=== PATIENT | male | born 1945 | race Caucasian/White ===

== ENCOUNTER 2023-09-16 18:06 | Observation (INO) | payer OTHER ==
[2023-09-16] MEDS ORDERED: METHOCARBAMOL 500 MG TABLET ONE (20:17)
[2023-09-16] MEDS ORDERED: LIDOCAINE 4% PATCH TP ONE (20:18)
[2023-09-16] MEDS ORDERED: ACETAMINOPHEN INJECTION 100 ML IVPB ONE (20:18)
[2023-09-16] MEDS: LIDOCAINE 4% PATCH TP ONE (20:31)
[2023-09-16] MEDS: METHOCARBAMOL 500 MG TABLET PO ONE (20:32)
[2023-09-16] MEDS: ACETAMINOPHEN 1000 MG/100 ML BAG IVPB ONE (20:32)
[2023-09-16 20:54] LABS: MCHC 33.7 g/dl (32.0-35.9); MEAN CELL VOLUME 94.8 fl (80-96); WHITE BLOOD COUNT 8.6 K/mm3 (4.0-10.0)
[2023-09-16 21:05] LABS: BASO % 0.7 % (0-2.0); EOS % 3.1 % (0-4.5); HEMATOCRIT 45.2 % (35.4-49); HEMOGLOBIN 15.2 GM/dL (11.7-16.9); LYMPH % 21.1 % (8-40); MEAN PLT VOLUME 10.9 fl (7.5-11.1); MONO % 8.1 % (3.8-10.2); PLATELET COUNT 163 10^3/uL (134-434); RBC 4.77 M/mm3 (4.00-5.60); RDW 13.8 % (11.9-15.9)
[2023-09-16 21:15] LABS: POTASSIUM 4.4 mmol/L (3.5-5.1)
[2023-09-16 21:19] LABS: ALBUMIN 3.4 g/dl (3.4-5.0); BLOOD UREA NITROGEN 23.3 mg/dL (7-18)
[2023-09-16 21:21] LABS: CREATININE 1.5 mg/dL (0.55-1.3)
[2023-09-16 21:22] LABS: BILIRUBIN,TOTAL 0.8 mg/dL (0.2-1)
[2023-09-16 21:23] LABS: TOT PROT 6.6 g/dl (6.4-8.2)
[2023-09-16] MEDS: LIDOCAINE PATCH REMOVAL MC SCH (22:04)
[2023-09-17] MEDS: SODIUM CHLORIDE 0.9% 500 ML INFUS.BAG IV ONE (01:20)
[2023-09-17] MEDS ORDERED: PANTOPRAZOLE 40 MG TABLET PO ONE (03:54)
[2023-09-17] MEDS: D5-1/2NS+10 MEQ KCL - 10 MEQ/1,000 ML INFUS.BAG IV SCH (04:25)
[2023-09-17] MEDS: PANTOPRAZOLE 40 MG TABLET PO SCH (04:25)
[2023-09-17] MEDS ORDERED: HEPARIN NA (PORCINE) 5,000 UNITS/ML 1ML VIAL ONE (06:05)
[2023-09-17] MEDS: HEPARIN NA (PORCINE) 5,000 UNITS/ML 1ML VIAL SQ SCH (06:13)
[2023-09-17] MEDS ORDERED: MECLIZINE HCL 25 MG TABLET (FP) PO PRN (06:30)
[2023-09-17] MEDS ORDERED: PANTOPRAZOLE 40 MG TABLET PO SCH (06:50)
[2023-09-17] MEDS: ACETAMINOPHEN 325 MG TABLET (FP) PO PRN (07:55)
[2023-09-17 08:01] LABS: PH,URINE 6.5 (5.0-8.0); URINE APPEARANCE CLEAR; URINE BILIRUBIN NEGATIVE (NEGATIVE); URINE COLOR YELLOW; URINE GLUCOSE (UA) NEGATIVE (NEGATIVE); URINE KETONE NEGATIVE (NEGATIVE); URINE LEUK ESTERASE NEGATIVE (NEGATIVE); URINE NITRITE NEGATIVE (NEGATIVE); URINE PROTEIN NEGATIVE (NEGATIVE)
[2023-09-17 08:18] VITALS: BMI 29.8
[2023-09-17] MEDS: LIDOCAINE PATCH REMOVAL MC ONE (08:55)
[2023-09-17] MEDS: TAMSULOSIN HCL 0.4 MG CAP PO SCH (09:55)
[2023-09-17] MEDS: CHOLECALCIFEROL (VIT D3) 1,000 UNIT (25 MCG) TABLET PO SCH (09:56)
[2023-09-17] MEDS: POLYETHYLENE GLYCOL (HEALTHYLAX) 3350 17 GM PACKET PO SCH (09:56)
[2023-09-17] MEDS: LOSARTAN POTASSIUM 25 MG TABLET PO SCH (09:56)
[2023-09-17] MEDS: FLUTICASONE/SALMETEROL (WIXELA) 100 MCG/50 MCG DISKUS IH SCH (09:57)
[2023-09-17] MEDS: MECLIZINE HCL 25 MG TABLET (FP) PO SCH (09:57)
[2023-09-17] MEDS: DULoxetine HCL 20 MG CAPSULE.DR PO SCH (09:57)
[2023-09-17] MEDS: amLODIPine BESYLATE 10 MG TABLET (FP) PO ONE (14:52)
[2023-09-17] MEDS: PREGABALIN 100 MG CAPSULE PO SCH (14:54)
[2023-09-17] MEDS ORDERED: ATORVASTATIN CA 40 MG TABLET (FP) PO SCH (22:00)
[2023-09-17] MEDS: ATORVASTATIN CA 40 MG TABLET (FP) PO SCH (22:15)
[2023-09-17] MEDS: DOCUSATE SODIUM 100 MG CAPSULE (FP) PO SCH (22:22)
[2023-09-17] MEDS: MELATONIN 5 MG TABLETS PO PRN (23:13)
[2023-09-18] MEDS: PANTOPRAZOLE 40 MG TABLET PO SCH (06:03)
[2023-09-18 09:20] LABS: BASO % 0.8 % (0-2.0); EOS % 3.7 % (0-4.5); HEMATOCRIT 44.8 % (35.4-49); HEMOGLOBIN 14.6 GM/dL (11.7-16.9); LYMPH % 24.5 % (8-40); MCH 31.3 pg (25.7-33.7); MCHC 32.6 g/dl (32.0-35.9); MEAN CELL VOLUME 96.2 fl (80-96); MONO % 8.3 % (3.8-10.2); NEUT % 62.7 % (42.8-82.8); PLATELET COUNT 146 10^3/uL (134-434); RBC 4.66 M/mm3 (4.00-5.60); RDW 13.7 % (11.9-15.9)
[2023-09-18 09:34] LABS: POTASSIUM 4.1 mmol/L (3.5-5.1)
[2023-09-18 09:38] LABS: BLOOD UREA NITROGEN 18.4 mg/dL (7-18); CALCIUM 9.3 mg/dL (8.5-10.1)
[2023-09-18 09:41] LABS: CREATININE 1.2 mg/dL (0.55-1.3)
[2023-09-18] MEDS: LIDOCAINE 4% PATCH TP SCH (10:03)
[2023-09-18] MEDS: amLODIPine BESYLATE 5 MG TABLET (FP) PO SCH (10:03)
[2023-09-18] MEDS: LOSARTAN POTASSIUM 50 MG TABLET PO SCH (10:04)
[2023-09-18] MEDS: traMADol HCL 50 MG TABLET PO PRN (21:43)
[2023-09-18] MEDS: LIDOCAINE PATCH REMOVAL MC SCH (22:55)
[2023-09-19] MEDS: clonazePAM 0.5 MG TABLET PO ONE (03:01)
[2023-09-19 10:25] LABS: BASO % 0.7 % (0-2.0); EOS % 3.9 % (0-4.5); HEMATOCRIT 46.7 % (35.4-49); HEMOGLOBIN 15.2 GM/dL (11.7-16.9); LYMPH % 18.9 % (8-40); MCH 31.3 pg (25.7-33.7); MCHC 32.5 g/dl (32.0-35.9); MEAN CELL VOLUME 96.5 fl (80-96); MEAN PLT VOLUME 10.9 fl (7.5-11.1); MONO % 7.1 % (3.8-10.2); NEUT % 69.4 % (42.8-82.8); PLATELET COUNT 162 10^3/uL (134-434); RBC 4.84 M/mm3 (4.00-5.60); RDW 13.8 % (11.9-15.9); WHITE BLOOD COUNT 8.2 K/mm3 (4.0-10.0)
[2023-09-19 10:50] LABS: POTASSIUM 4.2 mmol/L (3.5-5.1)
[2023-09-19 10:55] LABS: CALCIUM 8.9 mg/dL (8.5-10.1)
[2023-09-19 10:56] LABS: BLOOD UREA NITROGEN 16.1 mg/dL (7-18)
[2023-09-19 11:00] LABS: CREATININE 1.3 mg/dL (0.55-1.3)
[2023-09-19] MEDS ORDERED: amLODIPine BESYLATE 5 MG TABLET (FP) PO SCH (15:51)
[2023-09-19] MEDS: amLODIPine BESYLATE 5 MG TABLET (FP) PO ONE (17:16)
[2023-09-20] MEDS: amLODIPine BESYLATE 10 MG TABLET (FP) PO SCH (10:55)
[2023-09-20 18:06] VITALS: RESP 18
[2023-09-22] MEDS ORDERED: ALBUTEROL SO4 HFA INHALER IH PRN (09:29)
[2023-09-22] MEDS: ALBUTEROL SO4 HFA INHALER IH ONE (09:57)
[2023-09-23 11:39] VITALS: BP 124/55; PULSE 68; TEMP 98.1
== END 2023-09-23 12:21 ==
LOC: JER 18:06 → JERBED 09-17 00:08 → J5S 09-17 06:37
PROVIDERS: ADMIT Internal Medicine; ATTEND Internal Medicine
PROC: 3E023GC Introduction of Other Therapeutic Substance into Muscle, Percutaneous Approach (ICD-10-PCS; principal; 2023-09-17)
PROC: 3E033NZ Introduction of Analgesics, Hypnotics, Sedatives into Peripheral Vein, Percutaneous Approach (ICD-10-PCS; 2023-09-17)
PROC: 3E0337Z Introduction of Electrolytic and Water Balance Substance into Peripheral Vein, Percutaneous Approach (ICD-10-PCS; 2023-09-17)
DX: N17.9 Acute kidney failure, unspecified (principal); S06.0X0A Concussion without loss of consciousness, initial encounter; W18.39XA Other fall on same level, initial encounter; Y93.89 Activity, other specified; Y92.89 Other specified places as the place of occurrence of the external cause; I10 Essential (primary) hypertension; E78.5 Hyperlipidemia, unspecified; R79.89 Other specified abnormal findings of blood chemistry; R29.6 Repeated falls; G62.9 Polyneuropathy, unspecified; R55 Syncope and collapse; E86.0 Dehydration; K59.00 Constipation, unspecified; M62.81 Muscle weakness (generalized); Z88.8 Allergy status to other drugs, medicaments and biological substances
CPT/HCPCS: 0241U-QW; 36415; 70450-TC; 71045-TC-FY; 72125-TC; 72128-TC; 72131-TC; 72170-TC-FY; 80048; 80053; 81003; 82550; 85025; 85379; 87086; 87635; 93005; 93010; 93306-TC; 96361; 96372; 96374; 97116-GP; 97161-GP; 99285-25; G0378; J0131; J1644

== ENCOUNTER 2024-04-05 10:44 | Emergency (ER) | payer OTHER ==
[2024-04-05 11:05] VITALS: BMI 32.1
[2024-04-05 11:32] LABS: PH,URINE 6.5 (5.0-8.0); URINE APPEARANCE CLEAR; URINE BILIRUBIN NEGATIVE (NEGATIVE); URINE COLOR YELLOW; URINE GLUCOSE (UA) NEGATIVE (NEGATIVE); URINE KETONE NEGATIVE (NEGATIVE); URINE LEUK ESTERASE NEGATIVE (NEGATIVE); URINE NITRITE NEGATIVE (NEGATIVE); URINE PROTEIN TRACE (NEGATIVE)
[2024-04-05 11:56] LABS: BASO % 0.9 % (0-2.0); EOS % 3.1 % (0-4.5); HEMATOCRIT 43.8 % (35.4-49); HEMOGLOBIN 14.4 GM/dL (11.7-16.9); LYMPH % 20.9 % (8-40); MCH 31.4 pg (25.7-33.7); MCHC 32.9 g/dl (32.0-35.9); MEAN CELL VOLUME 95.2 fl (80-96); MEAN PLT VOLUME 9.6 fl (7.5-11.1); MONO % 7.4 % (3.8-10.2); NEUT % 67.7 % (42.8-82.8); PLATELET COUNT 182 10^3/uL (134-434); RDW 13.5 % (11.9-15.9); WHITE BLOOD COUNT 8.6 K/mm3 (4.0-10.0)
[2024-04-05 12:41] LABS: POTASSIUM 4.3 mmol/L (3.5-5.1)
[2024-04-05 12:43] LABS: ALBUMIN 3.7 g/dl (3.4-5.0); CALCIUM 9.1 mg/dL (8.5-10.1)
[2024-04-05 12:47] LABS: CREATININE 1.5 mg/dL (0.55-1.3)
[2024-04-05 12:48] LABS: BILIRUBIN,TOTAL 1.1 mg/dL (0.2-1); TOT PROT 7.2 g/dl (6.4-8.2)
[2024-04-05] MEDS ORDERED: amLODIPine BESYLATE 5 MG TABLET (FP) ONE (15:38)
[2024-04-05] MEDS ORDERED: MECLIZINE HCL 25 MG TABLET (FP) ONE (15:38)
[2024-04-05] MEDS ORDERED: PREGABALIN 100 MG CAPSULE ONE (15:39)
[2024-04-05] MEDS ORDERED: DULoxetine HCL 30 MG CAPSULE.DR PO ONE (15:39)
[2024-04-05] MEDS ORDERED: ATORVASTATIN CA 40 MG TABLET (FP) ONE (15:39)
[2024-04-05] MEDS ORDERED: LOSARTAN POTASSIUM 50 MG TABLET ONE (15:39)
[2024-04-05] MEDS ORDERED: CHOLECALCIFEROL (VIT D3) 1,000 UNIT (25 MCG) TABLET ONE (15:39)
[2024-04-05] MEDS ORDERED: TAMSULOSIN HCL 0.4 MG CAP ONE (15:40)
[2024-04-05] MEDS: MECLIZINE HCL 25 MG TABLET (FP) PO ONE (15:51)
[2024-04-05] MEDS: amLODIPine BESYLATE 5 MG TABLET (FP) PO ONE (15:51)
[2024-04-05] MEDS: DUTASTERIDE 0.5 MG CAP (FP) PO ONE (15:51)
[2024-04-05] MEDS: ATORVASTATIN CA 40 MG TABLET (FP) PO ONE (15:51)
[2024-04-05] MEDS: LOSARTAN POTASSIUM 50 MG TABLET PO ONE (15:51)
[2024-04-05] MEDS: DULoxetine HCL 60 MG CAPSULE.DR PO ONE (15:51)
[2024-04-05] MEDS: TAMSULOSIN HCL 0.4 MG CAP PO ONE (15:51)
[2024-04-05] MEDS: PREGABALIN 100 MG CAPSULE PO ONE (15:51)
[2024-04-05] MEDS: CHOLECALCIFEROL (VIT D3) 1,000 UNIT (25 MCG) TABLET PO ONE (15:51)
[2024-04-06 00:34] VITALS: BP 112/57; PULSE 72; RESP 16; TEMP 98.2
== END 2024-04-06 01:05 | disposition home or self-care (01) ==
LOC: JER 10:44
DX: N40.1 Benign prostatic hyperplasia with lower urinary tract symptoms (principal)
CPT/HCPCS: 36415; 80053; 81003; 85025; 87086; 99283-25

== ENCOUNTER 2024-04-12 17:06 | Emergency (ER) | payer OTHER ==
[2024-04-12 17:41] VITALS: RESP 16; TEMP 97.8; BMI 32.5
[2024-04-12 19:18] LABS: BASO % 0.6 % (0-2.0); EOS % 2.8 % (0-4.5); HEMOGLOBIN 14.7 GM/dL (11.7-16.9); LYMPH % 18.2 % (8-40); MCH 31.1 pg (25.7-33.7); MCHC 33.5 g/dl (32.0-35.9); MEAN CELL VOLUME 93.1 fl (80-96); MEAN PLT VOLUME 10.3 fl (7.5-11.1); MONO % 8.5 % (3.8-10.2); NEUT % 69.9 % (42.8-82.8); PLATELET COUNT 190 10^3/uL (134-434); RBC 4.73 M/mm3 (4.00-5.60); RDW 13.8 % (11.9-15.9); VENOUS BASE EXCESS 2.1 mmol/L (-2-2); VENOUS O2 SATURATION 51.4 % (70-80); VENOUS PCO2 51.3 mmHg (38-52); VENOUS PH 7.364 (7.310-7.410); WHITE BLOOD COUNT 9.3 K/mm3 (4.0-10.0)
[2024-04-12 19:19] LABS: URINE APPEARANCE CLEAR; URINE BILIRUBIN NEGATIVE (NEGATIVE); URINE COLOR YELLOW; URINE GLUCOSE (UA) TRACE (NEGATIVE); URINE KETONE NEGATIVE (NEGATIVE); URINE LEUK ESTERASE NEGATIVE (NEGATIVE); URINE NITRITE NEGATIVE (NEGATIVE); URINE PROTEIN TRACE (NEGATIVE)
[2024-04-12 19:35] LABS: INR 1.07 (0.83-1.09); PROTHROMBIN TIME (PATIENT) 12.1 SEC (9.7-13.0)
[2024-04-12 19:38] LABS: ACTIVATED PTT 50.5 SECONDS (25.2-36.5)
[2024-04-12 20:04] LABS: POTASSIUM 4.5 mmol/L (3.5-5.1)
[2024-04-12 20:06] LABS: CALCIUM 9.1 mg/dL (8.5-10.1)
[2024-04-12 20:07] LABS: ALBUMIN 3.8 g/dl (3.4-5.0); BLOOD UREA NITROGEN 24.5 mg/dL (7-18)
[2024-04-12 20:10] LABS: CREATININE 1.4 mg/dL (0.55-1.3)
[2024-04-12 20:11] LABS: BILIRUBIN,TOTAL 0.7 mg/dL (0.2-1); TOT PROT 7.4 g/dl (6.4-8.2)
[2024-04-12 22:13] VITALS: BP 139/90; PULSE 87
== END 2024-04-13 03:03 | disposition home or self-care (01) ==
LOC: JER 17:06
DX: R53.1 Weakness (principal)
CPT/HCPCS: 36415; 71045-TC-FY; 80053; 81003; 82803; 83880; 84484; 85025; 85610; 85730; 87086; 93005; 93010; 99283-25

== ENCOUNTER 2024-08-25 16:10 | Inpatient (IN) | payer OTHER ==
[2024-08-25] MEDS ORDERED: VANCOMYCIN 1 GM PREMIX (F) 1 GM/200 ML BAG IVPB ONE (16:29)
[2024-08-25] MEDS: SODIUM CHLORIDE 0.9% 500 ML INFUS.BAG IV ONE (16:30)
[2024-08-25] MEDS: ACETAMINOPHEN 1000 MG/100 ML BAG IVPB ONE (17:10)
[2024-08-25 17:13] LABS: BASO % 0.7 % (0-2.0); EOS % 0.2 % (0-4.5); HEMATOCRIT 48.4 % (35.4-49); HEMOGLOBIN 16.2 GM/dL (11.7-16.9); LYMPH % 4.6 % (8-40); MCH 30.7 pg (25.7-33.7); MCHC 33.4 g/dl (32.0-35.9); MEAN CELL VOLUME 92.1 fl (80-96); MONO % 6.9 % (3.8-10.2); NEUT % 87.6 % (42.8-82.8); PLATELET COUNT 195 10^3/uL (134-434); RBC 5.26 M/mm3 (4.00-5.60); RDW 13.9 % (11.9-15.9); WHITE BLOOD COUNT 12.3 K/mm3 (4.0-10.0)
[2024-08-25] MEDS ORDERED: ACETAMINOPHEN INJECTION 100 ML ONE (17:13)
[2024-08-25] MEDS ORDERED: CEFEPIME HCL/D5W 1 GM/50 ML BAG IVPB ONE (17:13)
[2024-08-25] MEDS ORDERED: VANCOMYCIN 1 GM PREMIX (F) 1 GM/200 ML BAG ONE (17:14)
[2024-08-25 17:15] LABS: VENOUS O2 SATURATION 50.8 % (70-80); VENOUS PCO2 44.9 mmHg (38-52); VENOUS PH 7.403 (7.310-7.410)
[2024-08-25 17:20] LABS: INR 1.27 (0.83-1.09); PROTHROMBIN TIME (PATIENT) 13.8 SEC (9.7-13.0)
[2024-08-25 17:23] LABS: ACTIVATED PTT 44.9 SECONDS (25.2-36.5)
[2024-08-25] MEDS: CEFEPIME HCL 1 GM VIAL (RESTRICTED TO ID) IVPB ONE (17:34)
[2024-08-25] MEDS: VANCOMYCIN 1,000 MG in DEXTROSE 5%-WATER - 250 ML IVPB ONE (17:35)
[2024-08-25 17:38] LABS: POTASSIUM 4.3 mmol/L (3.5-5.1)
[2024-08-25 17:40] LABS: CALCIUM 9.5 mg/dL (8.5-10.1)
[2024-08-25 17:41] LABS: ALBUMIN 3.8 g/dl (3.4-5.0); BLOOD UREA NITROGEN 18.7 mg/dL (7-18)
[2024-08-25 17:44] LABS: CREATININE 1.7 mg/dL (0.55-1.3)
[2024-08-25 17:46] LABS: BILIRUBIN,TOTAL 1.1 mg/dL (0.2-1); TOT PROT 7.8 g/dl (6.4-8.2)
[2024-08-25] MEDS ORDERED: methylPREDNISolone NA SUCC 40 MG/1 ML VIAL ONE (22:00)
[2024-08-25] MEDS ORDERED: HEPARIN NA (PORCINE) 5,000 UNITS/ML 1ML VIAL ONE (22:00)
[2024-08-25] MEDS ORDERED: PIPERACILLIN/TAZOB 3.375 GM 3.375 GM/50 ML BAG IVPB ONE (22:01)
[2024-08-25] MEDS: PIPERACILLIN/TAZOB 3.375 GM 3.375 GM in DEXTROSE 5%-WATER - 50 ML IVPB SCH (22:14)
[2024-08-25] MEDS: ALBUTEROL SO4 HFA INHALER IH SCH (22:14)
[2024-08-25] MEDS: methylPREDNISolone NA SUCC 40 MG/1 ML VIAL IVPUSH ONE (22:14)
[2024-08-25] MEDS: REMDESIVIR 200 MG in SODIUM CHLORIDE 250 ML IVPB ONE (22:47)
[2024-08-25] MEDS: HEPARIN NA (PORCINE) 5,000 UNITS/ML 1ML VIAL SQ SCH (22:47)
[2024-08-26] MEDS ORDERED: LOPERAMIDE HCL 2 MG CAPSULE PO PRN (00:22)
[2024-08-26] MEDS: methylPREDNISolone NA SUCC 40 MG/1 ML VIAL IVPUSH SCH (01:45)
[2024-08-26 02:13] VITALS: BMI 28.8
[2024-08-26] MEDS ORDERED: PIPERACILLIN/TAZOBACTAM 3.375 GM VIAL IVPB ONE (04:08)
[2024-08-26 05:20] LABS: URINE APPEARANCE CLEAR; URINE BILIRUBIN NEGATIVE (NEGATIVE); URINE COLOR YELLOW; URINE GLUCOSE (UA) NEGATIVE (NEGATIVE); URINE KETONE NEGATIVE (NEGATIVE); URINE LEUK ESTERASE NEGATIVE (NEGATIVE); URINE NITRITE NEGATIVE (NEGATIVE); URINE PROTEIN 2+ (NEGATIVE); URINE UROBILINOGEN 0.2 mg/dL (0.2-1.0)
[2024-08-26] MEDS ORDERED: HEPARIN NA (PORCINE) 5,000 UNITS/ML 1ML VIAL SQ SCH (06:00)
[2024-08-26] MEDS: PREGABALIN 100 MG CAPSULE PO SCH (06:23)
[2024-08-26 07:45] LABS: HEMATOCRIT 43.7 % (35.4-49); HEMOGLOBIN 14.9 GM/dL (11.7-16.9); MCH 31.4 pg (25.7-33.7); MCHC 34.1 g/dl (32.0-35.9); MEAN CELL VOLUME 92.2 fl (80-96); MEAN PLT VOLUME 11.1 fl (7.5-11.1); PLATELET COUNT 162 10^3/uL (134-434); RBC 4.74 M/mm3 (4.00-5.60); RDW 13.7 % (11.9-15.9); WHITE BLOOD COUNT 8.8 K/mm3 (4.0-10.0)
[2024-08-26 08:04] LABS: POTASSIUM 4.1 mmol/L (3.5-5.1)
[2024-08-26 08:12] LABS: CALCIUM 8.6 mg/dL (8.5-10.1)
[2024-08-26 08:13] LABS: ALBUMIN 3.1 g/dl (3.4-5.0); BLOOD UREA NITROGEN 19.6 mg/dL (7-18)
[2024-08-26 08:16] LABS: CREATININE 1.3 mg/dL (0.55-1.3); PHOSPHOROUS 3.1 mg/dL (2.5-4.9)
[2024-08-26 08:17] LABS: BILIRUBIN,TOTAL 1.1 mg/dL (0.2-1); TOT PROT 6.6 g/dl (6.4-8.2)
[2024-08-26] MEDS: TAMSULOSIN HCL 0.4 MG CAP PO SCH (08:22)
[2024-08-26 09:22] LABS: ANISOCYTOSIS 0; MACROCYTOSIS 0
[2024-08-26] MEDS: amLODIPine BESYLATE 5 MG TABLET (FP) PO SCH (09:24)
[2024-08-26] MEDS: POLYETHYLENE GLYCOL (HEALTHYLAX) 3350 17 GM PACKET PO SCH (09:24)
[2024-08-26] MEDS: LOSARTAN POTASSIUM 50 MG, LOSARTAN POTASSIUM 25 MG PO SCH (09:25)
[2024-08-26] MEDS: APIXABAN 2.5 MG TABLET PO SCH (09:26)
[2024-08-26] MEDS: DULoxetine HCL 30 MG CAPSULE.DR PO SCH (09:26)
[2024-08-26] MEDS ORDERED: LOSARTAN POTASSIUM 50 MG TABLET PO SCH (10:00)
[2024-08-26] MEDS: ATORVASTATIN CA 40 MG TABLET (FP) PO SCH (21:47)
[2024-08-26] MEDS: DOCUSATE SODIUM 100 MG CAPSULE (FP) PO SCH (21:48)
[2024-08-26] MEDS: REMDESIVIR 100 MG in SODIUM CHLORIDE 250 ML IVPB SCH (23:06)
[2024-08-26] MEDS: MOMETASONE FUROATE 220 MCG/IH INHALER IH SCH (23:06)
[2024-08-27 08:02] LABS: BASO % 0.1 % (0-2.0); HEMATOCRIT 41.9 % (35.4-49); HEMOGLOBIN 13.8 GM/dL (11.7-16.9); LYMPH % 6.5 % (8-40); MCH 30.4 pg (25.7-33.7); MCHC 32.9 g/dl (32.0-35.9); MEAN CELL VOLUME 92.5 fl (80-96); MEAN PLT VOLUME 10.8 fl (7.5-11.1); MONO % 3.5 % (3.8-10.2); NEUT % 89.9 % (42.8-82.8); PLATELET COUNT 171 10^3/uL (134-434); RBC 4.53 M/mm3 (4.00-5.60); RDW 13.6 % (11.9-15.9); WHITE BLOOD COUNT 13.1 K/mm3 (4.0-10.0)
[2024-08-27 08:16] LABS: POTASSIUM 4.2 mmol/L (3.5-5.1)
[2024-08-27 08:22] LABS: ALBUMIN 2.9 g/dl (3.4-5.0); BLOOD UREA NITROGEN 26.6 mg/dL (7-18); CALCIUM 8.5 mg/dL (8.5-10.1); MAGNESIUM 2.1 mg/dL (1.8-2.4)
[2024-08-27 08:25] LABS: CREATININE 1.4 mg/dL (0.55-1.3)
[2024-08-27 08:26] LABS: BILIRUBIN,TOTAL 0.6 mg/dL (0.2-1); TOT PROT 6.3 g/dl (6.4-8.2)
[2024-08-27] MEDS: BUDESONIDE/FORMETEROL FUMARATE 80/4.5 mcg INHALER IH SCH (14:07)
[2024-08-27] MEDS: PIPERACILLIN/TAZOB 3.375 GM 50 ML IVPB SCH (18:07)
[2024-08-27] MEDS: methylPREDNISolone NA SUCC 40 MG/1 ML VIAL IVPUSH SCH (21:27)
[2024-08-27] MEDS: guaiFENesin 600 MG TABLET.ER (FP) PO PRN (21:27)
[2024-08-27] MEDS: PRAMIPEXOLE DIHYDROCHLORIDE 0.25 MG TABLET PO SCH (21:27)
[2024-08-27 22:03] LABS: HEMATOCRIT 42.7 % (35.4-49); HEMOGLOBIN 14.3 GM/dL (11.7-16.9); MCH 30.9 pg (25.7-33.7); MCHC 33.4 g/dl (32.0-35.9); MEAN CELL VOLUME 92.4 fl (80-96); MEAN PLT VOLUME 10.9 fl (7.5-11.1); PLATELET COUNT 192 10^3/uL (134-434); RBC 4.62 M/mm3 (4.00-5.60); RDW 13.6 % (11.9-15.9); WHITE BLOOD COUNT 14.1 K/mm3 (4.0-10.0)
[2024-08-27 22:26] LABS: POTASSIUM 3.9 mmol/L (3.5-5.1)
[2024-08-27 22:28] LABS: CALCIUM 8.7 mg/dL (8.5-10.1)
[2024-08-27 22:29] LABS: ALBUMIN 2.9 g/dl (3.4-5.0); BLOOD UREA NITROGEN 26.8 mg/dL (7-18)
[2024-08-27 22:32] LABS: CREATININE 1.4 mg/dL (0.55-1.3); PHOSPHOROUS 2.9 mg/dL (2.5-4.9)
[2024-08-27 22:33] LABS: BILIRUBIN,TOTAL 0.6 mg/dL (0.2-1); TOT PROT 6.4 g/dl (6.4-8.2)
[2024-08-27] MEDS ORDERED: PIPERACILLIN/TAZOB 3.375 GM 50 ML IVPB SCH (23:00)
[2024-08-27 23:24] LABS: ANISOCYTOSIS 1+; MACROCYTOSIS 0
[2024-08-28] MEDS: PIPERACILLIN/TAZOB 3.375 GM 50 ML IVPB SCH (02:15)
[2024-08-28 07:48] LABS: CALCIUM 8.7 mg/dL (8.5-10.1)
[2024-08-28 07:49] LABS: ALBUMIN 2.9 g/dl (3.4-5.0)
[2024-08-28 07:50] LABS: BLOOD UREA NITROGEN 23.9 mg/dL (7-18)
[2024-08-28 07:53] LABS: CREATININE 1.2 mg/dL (0.55-1.3)
[2024-08-28 07:55] LABS: PHOSPHOROUS 3.3 mg/dL (2.5-4.9); TOT PROT 6.4 g/dl (6.4-8.2)
[2024-08-28 07:58] LABS: BILIRUBIN,TOTAL 0.6 mg/dL (0.2-1)
[2024-08-28 09:05] LABS: ERYTHROCYTE SEDIMENTATION RATE 12 mm/hr (0-20)
[2024-08-28] MEDS: ENOXAPARIN NA (PORCINE) 40 MG/0.4 ML DISP.SYRIN SQ SCH (10:04)
[2024-08-28 10:07] LABS: HEMATOCRIT 43.4 % (35.4-49); HEMOGLOBIN 14.3 GM/dL (11.7-16.9); LYMPH % 5.9 % (8-40); MCH 30.2 pg (25.7-33.7); MCHC 32.8 g/dl (32.0-35.9); MEAN PLT VOLUME 11.4 fl (7.5-11.1); MONO % 3.9 % (3.8-10.2); NEUT % 90.2 % (42.8-82.8); PLATELET COUNT 188 10^3/uL (134-434); RBC 4.72 M/mm3 (4.00-5.60); WHITE BLOOD COUNT 12.9 K/mm3 (4.0-10.0)
[2024-08-28 11:26] LABS: POTASSIUM 3.9 mmol/L (3.5-5.1)
[2024-08-28 11:34] LABS: ALBUMIN 2.9 g/dl (3.4-5.0); BLOOD UREA NITROGEN 24.4 mg/dL (7-18)
[2024-08-28 11:35] LABS: BILIRUBIN,TOTAL 0.6 mg/dL (0.2-1); TOT PROT 6.4 g/dl (6.4-8.2)
[2024-08-28 11:36] LABS: CALCIUM 8.8 mg/dL (8.5-10.1)
[2024-08-28 11:37] LABS: CREATININE 1.3 mg/dL (0.55-1.3)
[2024-08-29 07:13] LABS: BASO % 0.1 % (0-2.0); HEMATOCRIT 45.4 % (35.4-49); HEMOGLOBIN 14.7 GM/dL (11.7-16.9); MCH 30.1 pg (25.7-33.7); MCHC 32.4 g/dl (32.0-35.9); MEAN CELL VOLUME 92.9 fl (80-96); MEAN PLT VOLUME 10.9 fl (7.5-11.1); MONO % 7.5 % (3.8-10.2); NEUT % 76.4 % (42.8-82.8); PLATELET COUNT 192 10^3/uL (134-434); RBC 4.89 M/mm3 (4.00-5.60); RDW 13.7 % (11.9-15.9); WHITE BLOOD COUNT 11.7 K/mm3 (4.0-10.0)
[2024-08-29 07:28] LABS: POTASSIUM 4.4 mmol/L (3.5-5.1)
[2024-08-29 07:33] LABS: ALBUMIN 2.9 g/dl (3.4-5.0); BLOOD UREA NITROGEN 23.2 mg/dL (7-18); CALCIUM 8.7 mg/dL (8.5-10.1); MAGNESIUM 2.1 mg/dL (1.8-2.4)
[2024-08-29 07:36] LABS: CREATININE 1.2 mg/dL (0.55-1.3)
[2024-08-29 07:38] LABS: BILIRUBIN,TOTAL 0.7 mg/dL (0.2-1); TOT PROT 6.1 g/dl (6.4-8.2)
[2024-08-29] MEDS: methylPREDNISolone NA SUCC 40 MG/1 ML VIAL IVPUSH SCH (09:57)
[2024-08-29] MEDS: PIPERACILLIN/TAZOB 3.375 GM 50 ML IVPB SCH (12:46)
[2024-08-30 07:05] LABS: HEMATOCRIT 44.9 % (35.4-49); HEMOGLOBIN 14.4 GM/dL (11.7-16.9); MCH 29.9 pg (25.7-33.7); MCHC 32.1 g/dl (32.0-35.9); MEAN CELL VOLUME 93.3 fl (80-96); PLATELET COUNT 192 10^3/uL (134-434); RBC 4.82 M/mm3 (4.00-5.60); RDW 13.6 % (11.9-15.9); WHITE BLOOD COUNT 11.7 K/mm3 (4.0-10.0)
[2024-08-30 07:30] LABS: POTASSIUM 4.2 mmol/L (3.5-5.1)
[2024-08-30 07:41] LABS: CALCIUM 8.5 mg/dL (8.5-10.1)
[2024-08-30 07:43] LABS: BILIRUBIN,TOTAL 0.7 mg/dL (0.2-1)
[2024-08-30 07:44] LABS: CREATININE 1.1 mg/dL (0.55-1.3); PHOSPHOROUS 3.1 mg/dL (2.5-4.9)
[2024-08-30 09:36] LABS: ANISOCYTOSIS 0; MACROCYTOSIS 0
[2024-08-30] MEDS: PIPERACILLIN/TAZOB 3.375 GM 50 ML IVPB SCH (10:20)
[2024-08-30] MEDS: PIPERACILLIN/TAZOB 3.375 GM 3.375 GM in DEXTROSE 5%-WATER - 50 ML IVPB SCH (11:33)
[2024-08-30 16:17] VITALS: RESP 18
[2024-08-30 18:36] VITALS: BP 127/77; PULSE 81; TEMP 96.7
== END 2024-08-30 22:41 | DRG 177 ==
LOC: JER 16:10 → JERBED 20:50 → J4W 08-26 01:20
PROVIDERS: ADMIT Internal Medicine; ATTEND Internal Medicine
PROC: XW033E5 Introduction of Remdesivir Anti-infective into Peripheral Vein, Percutaneous Approach, New Technology Group 5 (ICD-10-PCS; principal; 2024-08-25)
DX: U07.1 COVID-19 (principal); J12.82 Pneumonia due to coronavirus disease 2019; J96.01 Acute respiratory failure with hypoxia; N17.9 Acute kidney failure, unspecified; J45.901 Unspecified asthma with (acute) exacerbation; I10 Essential (primary) hypertension; E11.42 Type 2 diabetes mellitus with diabetic polyneuropathy; N40.0 Benign prostatic hyperplasia without lower urinary tract symptoms; I48.91 Unspecified atrial fibrillation; E78.5 Hyperlipidemia, unspecified; I25.10 Atherosclerotic heart disease of native coronary artery without angina pectoris; Z95.2 Presence of prosthetic heart valve; G20.A1 Parkinson's disease without dyskinesia, without mention of fluctuations; G25.81 Restless legs syndrome
CPT/HCPCS: 0241U-QW; 36415; 70450-TC; 71045-TC-FY; 80053; 81003; 82728; 82803; 83540; 83550; 83605; 83735; 84100; 84439; 84443; 84484; 85025; 85610; 85651; 85730; 86140; 86850; 86900; 86901; 87040; 87086; 93005; 93010; 97116-GP; 97162-GP; 99285-25; J0131; J0248